=== PATIENT | female | born 1930 | race Caucasian/White ===

== ENCOUNTER 2016-06-21 08:26 | Emergency (ER) | payer MEDICARE, OTHER | END 2016-06-21 08:30 | disposition home or self-care (01) | LOC: FER 08:26 | DX: B37.0 Candidal stomatitis (principal); K21.9 Gastro-esophageal reflux disease without esophagitis; R05 Cough; I10 Essential (primary) hypertension; F41.9 Anxiety disorder, unspecified; Z79.899 Other long term (current) drug therapy | CPT/HCPCS: 71010; 99283 ==

== ENCOUNTER 2016-08-25 21:03 | Emergency (ER) | payer MEDICARE, OTHER | END 2016-08-25 22:30 | disposition home or self-care (01) | LOC: FER 21:03 | DX: M54.6 Pain in thoracic spine (principal); I10 Essential (primary) hypertension; F41.9 Anxiety disorder, unspecified; Z88.6 Allergy status to analgesic agent; Z91.018 Allergy to other foods; Z79.899 Other long term (current) drug therapy | CPT/HCPCS: 71020; 93005 ==

== ENCOUNTER 2020-05-01 14:19 | Emergency (ER) | payer MEDICARE, OTHER ==
[~2020-05-01 14:19] MED LIST: ALBUTEROL2.5 MG/3 M NEB; ANTIVERT12.5 MG PO; ANTIVERT25 MG PO; ATARAX25 MG PO; ATIVAN1 MG PO; CEFDINIR250 MG/5 M PO; CIPRO500 MG PO; DESYREL50 MG PO; ENEMA133 M1 PR; FLONASE ALLER15.8 ML; LASIX20 MG PO; LAXATIVE SUPPOS10 MG PR; LOPRESSOR25 MG PO; LOPRESSOR50 MG PO; LOTRIMIN30 ML PO; METRONIDAZOLE500 MG PO; MILK OF MA400 MG/5 M PO; MIRALAX17 GM PO; MLYLANTA/MAALOX30 ML PO; NAPROSYN375 MG PO; NORCO 5-325 TA1 EACH PO; NORVASC5 MG PO; ONDANSETRON ODT4 MG PO; ONDANSETRON ODT4 MG SL; PANTOPRAZOLE SO40 MG PO; PERCOCET 5-3251 EACH PO; PHENERGAN12.5 M1 PO; REMERON15 MG PO; SENOKOT8.6 MG PO; XANAX0.5 MG PO
[2020-05-01 15:24] LABS: BILIRUBIN NEGATIVE (NEGATIVE); BLOOD NEGATIVE Ery/uL (NEGATIVE); CLARITY CLEAR (CLEAR); COLOR YELLOW (YELLOW); GLUCOSE (U) NORMAL (NORMAL); LEUKOCYTES NEGATIVE Leu/uL (NEGATIVE); NITRITE NEGATIVE (NEGATIVE); PROTEIN NEGATIVE (NEGATIVE); UROBILINOGEN 0.2 mg/dL (0.2-1.0)
[2020-05-01 17:32] LABS: ALBUMIN 3.6 g/dL (3.4-5.0); BILIRUBIN - TOTAL 0.4 mg/dL (0.2-1.0); BUN/CREAT RATIO (CALC) 13.6 RATIO; CREATININE 1.1 mg/dL (0.51-0.95); GLOBULIN (CALCULATION) 3.8 g/dL; POTASSIUM 4.4 mmol/L (3.5-5.1); TOTAL PROTEIN 7.4 g/dL (6.4-8.2)
[2020-05-01 17:51] LABS: BASOPHIL 1.3 % (0-2); EOSINOPHIL 7.3 % (0-7); HCT 43.7 % (37.0-47.0); HGB 14.3 g/dl (12.5-16.0); LYMPHOCYTE 25.6 % (15-48); MCH 33.4 pg (25.0-31.0); MCHC 32.7 g/dL (32.0-36.0); MCV 102.1 fL (78.0-100.0); MONOCYTE 10.4 % (0-12); MPV 11.3 fL (6.0-9.5); NEUTROPHIL 55.3 % (41-80); NRBC 0; PLT 241 K/uL (150-400); RBC 4.28 M/uL (4.20-5.40); RDW 12.9 % (11.5-14.0)
== END 2020-05-01 18:55 | disposition home or self-care (01) ==
LOC: FER 14:19
PROVIDERS: Emergency Medicine
DX: R41.82 Altered mental status, unspecified (principal); F03.90 Unspecified dementia, unspecified severity, without behavioral disturbance, psychotic disturbance, mood disturbance, and anxiety; Z90.10 Acquired absence of unspecified breast and nipple
CPT/HCPCS: 36415; 70450; 80053; 81003; 83605; 85025; J1885

== ENCOUNTER 2020-05-25 13:23 | Emergency (ER) | payer MEDICARE, OTHER ==
[2020-05-25 16:09] LABS: BASOPHIL 1.4 % (0-2); HCT 42.2 % (37.0-47.0); LYMPHOCYTE 24.8 % (15-48); MCH 33.4 pg (25.0-31.0); MCHC 33.2 g/dL (32.0-36.0); MCV 100.7 fL (78.0-100.0); MONOCYTE 10.6 % (0-12); MPV 11.5 fL (6.0-9.5); NEUTROPHIL 57.9 % (41-80); NRBC 0; PLT 251 K/uL (150-400); RBC 4.19 M/uL (4.20-5.40); RDW 13.4 % (11.5-14.0); WBC 7.1 K/uL (4.0-10.5)
[2020-05-25 16:23] LABS: BILIRUBIN NEGATIVE (NEGATIVE); BLOOD NEGATIVE Ery/uL (NEGATIVE); CLARITY CLEAR (CLEAR); COLOR YELLOW (YELLOW); GLUCOSE (U) NORMAL (NORMAL); LEUKOCYTES NEGATIVE Leu/uL (NEGATIVE); NITRITE NEGATIVE (NEGATIVE); PROTEIN NEGATIVE (NEGATIVE); UROBILINOGEN 0.2 mg/dL (0.2-1.0); pH 7.5 (5.0-9.0)
[2020-05-25 16:36] LABS: ALBUMIN 3.4 g/dL (3.4-5.0); BILIRUBIN - TOTAL 0.5 mg/dL (0.2-1.0); BUN/CREAT RATIO (CALC) 16.5 RATIO; CREATININE 0.85 mg/dL (0.51-0.95); GLOBULIN (CALCULATION) 3.3 g/dL; POTASSIUM 3.7 mmol/L (3.5-5.1); TOTAL PROTEIN 6.7 g/dL (6.4-8.2)
== END 2020-05-25 18:21 | disposition home or self-care (01) ==
LOC: FER 13:23
PROVIDERS: Nurse Practitioner Family
DX: R19.7 Diarrhea, unspecified (principal); I10 Essential (primary) hypertension; Z88.6 Allergy status to analgesic agent; Z79.899 Other long term (current) drug therapy
CPT/HCPCS: 36415; 80053; 81003; 85025; 99284

== ENCOUNTER 2020-07-03 15:56 | Emergency (ER) | payer MEDICARE, OTHER ==
[2020-07-03 18:47] LABS: BASOPHIL 1.5 % (0-2); EOSINOPHIL 5.3 % (0-7); HCT 43.4 % (37.0-47.0); HGB 14.8 g/dl (12.5-16.0); LYMPHOCYTE 33.4 % (15-48); MCH 35.1 pg (25.0-31.0); MCHC 34.1 g/dL (32.0-36.0); MCV 102.8 fL (78.0-100.0); MONOCYTE 10.9 % (0-12); MPV 11.3 fL (6.0-9.5); NEUTROPHIL 48.8 % (41-80); NRBC 0; PLT 190 K/uL (150-400); RBC 4.22 M/uL (4.20-5.40); RDW 13.8 % (11.5-14.0); WBC 8.5 K/uL (4.0-10.5)
[2020-07-03 18:53] LABS: ALBUMIN 3.5 g/dL (3.4-5.0); ALKALINE PHOSHATASE 62 U/L (46-116); ALT 24 U/L (14-59); AST 35 U/L (15-37); BILIRUBIN - TOTAL 0.5 mg/dL (0.2-1.0); BUN 12 mg/dL (7-18); BUN/CREAT RATIO (CALC) 14.3 RATIO; CHLORIDE 105 mmol/L (98-107); CO2 (BICARBONATE) 25 mmol/L (21-32); CREATININE 0.84 mg/dL (0.51-0.95); GLOBULIN (CALCULATION) 3.4 g/dL; GLUCOSE 94 mg/dL (74-106); LIPASE 88 U/L (73-393); POTASSIUM 5.2 mmol/L (3.5-5.1); TOTAL PROTEIN 6.9 g/dL (6.4-8.2)
[2020-07-03 18:54] LABS: C-REACTIVE PROTEIN < 0.20 mg/dL (<=0.90)
[2020-07-03 18:56] LABS: BILIRUBIN NEGATIVE (NEGATIVE); BLOOD NEGATIVE Ery/uL (NEGATIVE); CLARITY CLEAR (CLEAR); COLOR YELLOW (YELLOW); GLUCOSE (U) NORMAL (NORMAL); LEUKOCYTES NEGATIVE Leu/uL (NEGATIVE); NITRITE NEGATIVE (NEGATIVE); PROTEIN NEGATIVE (NEGATIVE); SPECIFIC GRAVITY 1.015 (1.001-1.030); UROBILINOGEN 0.2 mg/dL (0.2-1.0)
[2020-07-03 18:56] LABS: LACTIC ACID 1.2 mmol/L (0.4-1.9)
== END 2020-07-03 21:20 | disposition home or self-care (01) ==
LOC: FER 15:56
PROVIDERS: Internal Medicine
DX: R19.7 Diarrhea, unspecified (principal); Z20.822 Contact with and (suspected) exposure to COVID-19; Z90.49 Acquired absence of other specified parts of digestive tract; Z88.6 Allergy status to analgesic agent
CPT/HCPCS: 36415; 80053; 81003; 83605; 83690; 85025; 86140; 99284; U0002

== ENCOUNTER 2020-07-29 10:34 | Emergency (ER) | payer MEDICARE, OTHER ==
[2020-07-29 12:12] LABS: ALBUMIN 2.9 g/dL (3.4-5.0); BILIRUBIN - TOTAL 0.3 mg/dL (0.2-1.0); BUN/CREAT RATIO (CALC) 14.5 RATIO; CREATININE 0.83 mg/dL (0.51-0.95); GLOBULIN (CALCULATION) 4.3 g/dL; POTASSIUM 3.8 mmol/L (3.5-5.1); TOTAL PROTEIN 7.2 g/dL (6.4-8.2)
[2020-07-29 12:20] LABS: BILIRUBIN NEGATIVE (NEGATIVE); BLOOD NEGATIVE Ery/uL (NEGATIVE); CLARITY CLEAR (CLEAR); COLOR YELLOW (YELLOW); GLUCOSE (U) NORMAL (NORMAL); LEUKOCYTES TRACE Leu/uL (NEGATIVE); NITRITE NEGATIVE (NEGATIVE); PROTEIN NEGATIVE (NEGATIVE); SPECIFIC GRAVITY 1.015 (1.001-1.030); UROBILINOGEN 0.2 mg/dL (0.2-1.0)
[2020-07-29 12:32] LABS: BASOPHIL 1.3 % (0-2); EOSINOPHIL 13.6 % (0-7); HCT 40.9 % (37.0-47.0); HGB 13.9 g/dl (12.5-16.0); LYMPHOCYTE 23.1 % (15-48); MCH 34.4 pg (25.0-31.0); MCV 101.2 fL (78.0-100.0); MONOCYTE 10.5 % (0-12); MPV 10.5 fL (6.0-9.5); NEUTROPHIL 51.3 % (41-80); NRBC 0; PLT 298 K/uL (150-400); RBC 4.04 M/uL (4.20-5.40); RDW 12.7 % (11.5-14.0); WBC 8.3 K/uL (4.0-10.5)
[2020-07-29] MEDS ORDERED: CHOLESTYRAMINE378 GM PO (12:44)
[2020-07-29 13:22] LABS: BACTERIA TRACE
== END 2020-07-29 14:37 | disposition home or self-care (01) ==
LOC: FER 10:34
PROVIDERS: Emergency Medicine
DX: R19.7 Diarrhea, unspecified (principal); R10.9 Unspecified abdominal pain; R42 Dizziness and giddiness; I10 Essential (primary) hypertension; F03.90 Unspecified dementia, unspecified severity, without behavioral disturbance, psychotic disturbance, mood disturbance, and anxiety; Z85.3 Personal history of malignant neoplasm of breast; Z88.6 Allergy status to analgesic agent
CPT/HCPCS: 36415; 80053; 81001; 82150; 83690; 85025; J1885; J7040